=== PATIENT | female | born 1940 | race Caucasian/White ===

== ENCOUNTER 2018-08-11 10:01 | Outpatient (RCR) | payer MEDICARE, BC ==
[~2018-08-11 10:01] MED LIST: CARAFATE 1GM1 G PO; COLESTID 1GM1 G PO; COZAAR100 MG PO; LOPID 600M600 MG/TAB PO; NEXIUM 40MG40 MG PO; NIACIN500 M3 PO; NORCO 325 MG-51 TAB PO; NORVASC 5MG5 MG/TAB PO; PREMARIN 0.60.625 M1 PO; VITAMIN D2000 I1 PO
== END 2018-11-09 | disposition still patient (30) ==
LOC: WSST
DX: R49.0 Dysphonia (principal); K21.9 Gastro-esophageal reflux disease without esophagitis

== ENCOUNTER 2020-04-20 10:30 | Observation (INO) | payer MEDICARE, BC ==
[2020-04-20] VITALS (9 sets, daily range): BP systolic 138–169; BP diastolic 64–90; PULSE 72–91; TEMP 97.5–98.3
[~2020-04-20] VITALS: Ht 154.9 cm; Wt 66.9 kg
[2020-04-20] MEDS ORDERED: VITAMIN FLUSH-F1 CAP PO (11:53)
[2020-04-20] MEDS ORDERED: B COMPLEX #11 TA1 PO (11:53)
[2020-04-20] MEDS ORDERED: CALCIUM-MAGNES1 EAC1 PO (11:54)
[2020-04-20] MEDS ORDERED: PHARMASSURE ZIN50 MG PO (11:54)
[2020-04-20] MEDS ORDERED: NATURAL E400 IU PO (11:55)
[2020-04-20] MEDS ORDERED: FIBER0.52 GM PO (11:56)
[2020-04-20] MEDS ORDERED: VITAMINC1000TA PO (11:56)
[2020-04-20] MEDS ORDERED: MASON NATURAL2000 IU PO (11:57)
[2020-04-20] MEDS ORDERED: VISION FORMULA1 EAC1 PO (11:58)
[2020-04-20] MEDS ORDERED: ACIDOPHILIS PO (11:58)
[2020-04-20] MEDS ORDERED: IRON PO (11:58)
[2020-04-20] MEDS ORDERED: [UNRECOGNIZED DRUG - OTHER] PO (12:00)
--- NOTE | 2020-04-20 16:50 | NUR ---
PATIENT ARRIVED TO ROOM 323 VIA BED FROM PACU. PATIENT SETTELED INTO ROOM. RESPIRATIONS 10 AT THIS TIME, PATIENT SATING AT 98% ON 2L, POST-OP VSS. WILL CONTINUE TO MONITOR.
--- NOTE | 2020-04-20 17:35 | NUR ---
LIMITED ASSESSMENT COMPLETED AT THIS TIME DUE TO PATIENT NOT WANTING TO BE TOUCHED. POST-OP VSS. WILL CONTINUE TO MONITOR, AND REPORT OFF TO ONCOMING NURSE.
--- NOTE | 2020-04-20 20:00 | NUR ---
Patient crying out in pain and yelling "help". Ultram administered. Patient states she need to go to the bathroom. Offered to help client use the bedside commode. Patient refused stating "she cannot get up". Offered patient a bedpan and patient refused. Patient incontinent in bed and is refusing to get cleaned up.
--- NOTE | 2020-04-20 20:30 | NUR ---
Patient agrees to get cleaned up. Full linen change. Encouraged patient to call if she needed to void again. Educated patient on the importance of getting up and moving after surgery.
--- NOTE | 2020-04-20 22:00 | NUR ---
Patient called stating she needs to go to the bathroom. Patient up to use the bedside commode with assistance. PAteint had steady gait but screamed out in pain.
[2020-04-21] VITALS (7 sets, daily range): BP systolic 100–172; BP diastolic 54–88; PULSE 77–96; TEMP 97.5–98.3
--- NOTE | 2020-04-21 05:13 | NUR ---
Patient contiued having pain throughout the shift. Ultram given PRN for pain. 4 lap sites clean, dry, and intact with abdominal binder on. Patient has no other needs at this time.
--- NOTE | 2020-04-21 09:10 | NUR ---
Initial visit; Patient thanked Surveillance Monitor for looking in on her and offering God's blessings.
--- NOTE | 2020-04-21 09:30 | NUR ---
CHAR met with the patient and her , Yaw (ph#[phone]), to discuss discharge plan. The patient lives in [place] with her . She reports independence with ADLs and has a rolaider. The patient's primary care provider is KARINA Ferrer in [place] she she receives her medications at the [facility]. She reports no difficulties obtaining her meds. The patient does not have a DPOA-HC, but she was interested in obtaining a form. CHAR provided. The patient plans to return home with her upon discharge. No additional needs at this time.
--- NOTE | 2020-04-21 09:56 | NUR ---
Patient alert and oriented, answers questions appropriately. See assessment. Abdomen soft, non tender, non distended. Bowel sounds active x4 quads. No flatus. No bowel movement. Lap sites to abdomen with edges well approximated, no redness or drainage noted. Abdominal binder in place. Post op exercises and activity reviewed with patient. C/o abdominal pain 05/11 at this time. No other c/o.
--- NOTE | 2020-04-21 18:20 | NUR ---
Patient has ambulated in halls several times throughout the day, has sat up in chair most of the day. Continues doing IS, CDB and leg exercises. Stated she has not had a bowel movement for three days, orders received per Dr Conrad for Miralax and colace. No c/o at this time.
--- NOTE | 2020-04-21 20:40 | NUR ---
Patient assessed at this time. Alert and oriented x 4, and able to make needs known. Reported level 3 pain to abdomen. Given PRN Ultram as requested for pain. Also given PRN Zofran for nausea as requested. Peripheral INT to left forearm. Site without redness, warmth, swelling, and pain. Denies having SOB and dyspnea. LS CTA. Respirations even and unlabored. HRR. Capillary refill less than 3 seconds. Non-tenting skin turgor. BS hypoactive x 4. Reports not being able to pass any gas. Patient on bowel regimen. Abdominal binder in place. 4 lap sites CDI. No edema. Voices no questions, needs, or concerns at this time. Resting in recliner with call light within reach.
[2020-04-22 03:34] VITALS: BP 103/66; PULSE 92; TEMP 97.9
--- NOTE | 2020-04-22 05:52 | NUR ---
Patient has been resting in recliner with call light within reach this shift. No further complaints of pain or discomfort after receiving PRN Ultram last night. Patient continues to deny passing gas, and no BM this shift.
[2020-04-22 08:09] VITALS: BP 109/77; PULSE 93; TEMP 97.9
--- NOTE | 2020-04-22 09:37 | NUR ---
Patient alert and oriented, answers questions appropriately. See assessment. Abdomen soft, non distended, mild discomfort with palpation. Lap sites to abdomen with edges well approximated, no redness or drainage noted. Abdominal binder in place. Bowel sounds active x4 quads. +Flatus. No bowel movement. Urinating adequate amounts. Post op exercises reviewed with patient, ambulation encouraged. No c/o at this time.
[2020-04-22 12:25] VITALS: BP 110/60; PULSE 93; TEMP 97.8
[2020-04-22] MEDS ORDERED: NORCO 325 MG-51 TAB PO (13:27)
[2020-04-22] MEDS ORDERED: ZOFRAN 4MG T4 MG/TAB PO (13:27)
--- NOTE | 2020-04-22 15:40 | NUR ---
Discharge instructions reviewed with patient and spouse, verbalized understanding. Discharged via wheelchair to auto/home with family at 1535.
== END 2020-04-22 15:35 | disposition home or self-care (01) ==
LOC: SDCO 10:30 → SURG 16:50 → SDCO 04-21 13:44 → SURG 04-21 13:44 → SDCO 07-25 12:30
PROVIDERS: ADMIT Surgery
DX: K43.0 Incisional hernia with obstruction, without gangrene (principal); K66.0 Peritoneal adhesions (postprocedural) (postinfection); K21.9 Gastro-esophageal reflux disease without esophagitis; I10 Essential (primary) hypertension; E78.5 Hyperlipidemia, unspecified; M81.0 Age-related osteoporosis without current pathological fracture; M19.90 Unspecified osteoarthritis, unspecified site; G89.29 Other chronic pain; Z90.89 Acquired absence of other organs; Z90.710 Acquired absence of both cervix and uterus; Z88.0 Allergy status to penicillin; Z90.49 Acquired absence of other specified parts of digestive tract; Z20.828 Contact with and (suspected) exposure to other viral communicable diseases; Z79.899 Other long term (current) drug therapy; Z88.5 Allergy status to narcotic agent; Z88.8 Allergy status to other drugs, medicaments and biological substances; Z82.3 Family history of stroke; Z80.9 Family history of malignant neoplasm, unspecified; Z82.49 Family history of ischemic heart disease and other diseases of the circulatory system
CPT/HCPCS: OP; C1781; G0378; J0690; J1100; J2175; J2370; J2405; J2704; J3010; J7050; J7120

== ENCOUNTER → 2022-06-04 | Outpatient (CLI) | payer MEDICARE ==
[~2022-06-04] MED LIST changes: +ACIDOPHILIS PO; +B COMPLEX #11 TA1 PO; +CALCIUM-MAGNES1 EAC1 PO; +FIBER0.52 GM PO; +IRON PO; +MASON NATURAL2000 IU PO; +NATURAL E400 IU PO; +PHARMASSURE ZIN50 MG PO; +VISION FORMULA1 EAC1 PO; +VITAMIN FLUSH-F1 CAP PO; +VITAMINC1000TA PO; +ZOFRAN 4MG T4 MG/TAB PO; +[UNRECOGNIZED DRUG - OTHER] PO
== END ==
LOC: COL.RAD 09:14
DX: M19.041 Primary osteoarthritis, right hand (principal)
CPT/HCPCS: J3301; Q9967

== ENCOUNTER → 2023-06-10 | Outpatient (CLI) | payer MEDICARE | LOC: MHCPAIN 10:17 | DX: M54.50 Low back pain, unspecified (principal); M54.16 Radiculopathy, lumbar region; M41.80 Other forms of scoliosis, site unspecified | CPT/HCPCS: G0463 ==

== ENCOUNTER → 2023-09-02 | Outpatient (CLI) | payer MEDICARE | LOC: MHCPAIN 13:53 | DX: M54.50 Low back pain, unspecified (principal); M54.16 Radiculopathy, lumbar region; M41.86 Other forms of scoliosis, lumbar region; M70.62 Trochanteric bursitis, left hip | CPT/HCPCS: G0463 ==

== ENCOUNTER → 2023-10-08 | Outpatient (CLI) | payer MEDICARE | LOC: MHCPAIN 10:36 | DX: M54.50 Low back pain, unspecified (principal); M47.816 Spondylosis without myelopathy or radiculopathy, lumbar region; M41.86 Other forms of scoliosis, lumbar region | CPT/HCPCS: G0463 ==